=== PATIENT | female | born 1960 | race Caucasian/White ===

== ENCOUNTER 2020-11-21 14:26 | Emergency (ER) | payer OTHER ==
[~2020-11-21] VITALS: Ht 162.6 cm; Wt 65.0 kg
[2020-11-21] MEDS ORDERED: AMITRIPTYLINE100 M1 PO (14:49)
[2020-11-21] MEDS ORDERED: OXAYDO7.5 MG PO (14:50)
[2020-11-21] MEDS ORDERED: XTAMPZA ER18 MG PO (14:51)
[2020-11-21] MEDS ORDERED: METHOCARBAMOL500 MG PO (14:51)
[2020-11-21 19:06] VITALS: BP 174/87
== END 2020-11-21 18:33 | disposition home or self-care (01) | DRG 914 ==
LOC: ED 14:26
DX: S09.90XA Unspecified injury of head, initial encounter (principal); S79.912A Unspecified injury of left hip, initial encounter; I10 Essential (primary) hypertension; V49.40XA Driver injured in collision with unspecified motor vehicles in traffic accident, initial encounter